=== PATIENT | male | born 1960 | race African-American/Black ===

== ENCOUNTER 2020-11-24 17:17 | Inpatient (IN) | payer OTHER ==
[~2020-11-24] VITALS: Ht 170.1 cm; Wt 69.4 kg
[2020-11-25] MEDS ORDERED: BASAG SOL SC (09:06)
[2020-11-25] MEDS ORDERED: EFFEXOR-XR150 MG PO (09:07)
[2020-11-25] MEDS ORDERED: FIBERCON625 MG PO (09:08)
[2020-11-25] MEDS ORDERED: NATURE'S BLEND F1 MG PO (09:09)
[2020-11-25] MEDS ORDERED: LIPITOR40 MG PO (09:10)
[2020-11-25] MEDS ORDERED: LOPERAMIDE HCL2 M1 PO (09:11)
[2020-11-25] MEDS ORDERED: REMERON15 M2 PO (09:11)
[2020-11-25] MEDS ORDERED: TRAD5TAB1 PO (09:12)
[2020-11-25] MEDS ORDERED: B-121000 MCG PO (09:13)
[2020-11-25] MEDS ORDERED: VITAMIN D325 MC1 PO (09:16)
[2020-11-25] MEDS ORDERED: INSULIN AS100 UNIT/2 SQ (09:30)
[2020-11-25] MEDS ORDERED: INVEGA SUS78 MG/0.5 IM (09:32)
[2020-11-25 10:57] VITALS: BP 140/48
[2020-11-25 20:00] VITALS: BP 114/69
[2020-11-26 06:10] LABS: BASO % 0.4 % (0.0-1.0); EOS # 0.2 10*3/uL (0.0-0.4); EOS % 2.4 % (1.0-4.0); HEMATOCRIT 34.9 % (42.0-52.0); LYMPH # 2.3 10*3/uL (1.3-4.4); MEAN CELL VOLUME 92.1 fl (80.0-94.0); MEAN CORPUSCULAR HGB 28.8 pg (27.0-31.0); MEAN CORPUSCULAR HGB CONC 31.2 g/dl (33.0-37.0); MEAN PLATELET VOLUME 8.9 fl (9.6-12.3); MONO # 0.8 10*3/uL (0.1-1.0); MONO % 10.7 % (3.0-9.0); NEUT # 3.9 10*3/uL (2.3-7.9); NEUT % 54.4 % (47.0-73.0); PLATELET COUNT AUTOMATED 368 10*3/uL (130-400); RED BLOOD COUNT 3.79 10*6/uL (4.50-5.90); RED CELL DISTRI WIDTH 12.4 % (0-14.5); WHITE BLOOD COUNT 7.2 10*3/uL (4.8-10.8)
[2020-11-26 06:36] LABS: ALBUMIN 3.7 gm/dl (3.1-4.5); ALKALINE PHOSPHATASE 152 U/L (45-117); BUN 32 mg/dl (7-24); CHLORIDE 105 mmol/L (98-107); CHOLESTEROL 107 mg/dL (<200); CREATININE 1.12 mg/dL (0.70-1.30); LDL CHOLESTEROL 29 mg/dL (9-159); POTASSIUM 4.5 mmol/L (3.5-5.1); SGOT/AST 61 IU/L (3-35); SGPT/ALT 124 U/L (12-78); SODIUM 137 mmol/L (136-145); TOTAL PROTEIN 8.3 gm/dL (6.4-8.2); TRIGLYCERIDES 46 mg/dl (<150)
[2020-11-26 06:42] LABS: THYROID STIM HORMONE (HS) 0.387 uIU/ml (0.358-4.75)
[2020-11-26 06:47] LABS: VITAMIN D, 25-HYDROXY 41.3 ng/mL (30-100)
[2020-11-26 07:37] VITALS: BP 116/70
[2020-11-26 20:00] VITALS: BP 136/76
[2020-11-27 07:37] VITALS: BP 129/66
[2020-11-27 18:36] LABS: BILIRUBIN Negative (Negative); BLOOD Negative (Negative); CLARITY Clear (Clear); COLOR Yellow (Yellow); GLUCOSE Negative (Negative); KETONE Trace (Negative); LEUKO ESTERASE Negative (Negative); NITRITE Negative (Negative); SPECIFIC GRAVITY 1.025 (1.001-1.030); UROBILINOGEN 0.2 E.U./dl (0.0-1.0)
[2020-11-27 18:44] LABS: BACTERIA TRACE; WBC 0-2 wbc/hpf (0-5)
[2020-11-27 20:00] VITALS: BP 142/86
[2020-11-28 07:52] VITALS: BP 145/79
[2020-11-28 20:00] VITALS: BP 133/86
[2020-11-29 07:27] VITALS: BP 111/62
[2020-11-29 20:00] VITALS: BP 106/80
[2020-11-30 07:34] VITALS: BP 116/71
[2020-11-30 20:00] VITALS: BP 119/74
[2020-12-01 07:32] VITALS: BP 126/73
[2020-12-01 20:00] VITALS: BP 116/66
[2020-12-02 07:38] VITALS: BP 119/75
[2020-12-02 20:00] VITALS: BP 145/88
[2020-12-03 07:30] VITALS: BP 110/87
[2020-12-03 20:00] VITALS: BP 124/83
[2020-12-04 07:27] VITALS: BP 121/78
[2020-12-04 20:00] VITALS: BP 125/84
[2020-12-05 07:29] VITALS: BP 107/62
[2020-12-05] MEDS ORDERED: MEMANTINE HCL10 MG PO (09:15)
[2020-12-05] MEDS ORDERED: CITALOPRAM20 MG PO (09:15)
[2020-12-05] MEDS ORDERED: INVEGA SUSTENN156 MG IM (09:15)
[2020-12-05] MEDS ORDERED: MEDROXYPROGESTE10 M1 PO (09:15)
[2020-12-05] MEDS ORDERED: RIVASTIGMINE1 EAC2 T (09:15)
[2020-12-05] MEDS ORDERED: TRIHEXYPHENIDYL2 M3 PO (09:15)
== END 2020-12-05 16:34 | DRG 886 ==
LOC: 3N 17:17
PROVIDERS: ADMIT Psychiatry & Neurology Psychiatry; ATTEND Psychiatry & Neurology Psychiatry
PROC: 0HBRXZZ Excision of Toe Nail, External Approach (ICD-10-PCS; principal; 2020-11-30)
PROC: 0HBRXZZ Excision of Toe Nail, External Approach (ICD-10-PCS; 2020-11-30)
PROC: 0HBRXZZ Excision of Toe Nail, External Approach (ICD-10-PCS; 2020-11-30)
PROC: 0HBRXZZ Excision of Toe Nail, External Approach (ICD-10-PCS; 2020-11-30)
PROC: 0HBRXZZ Excision of Toe Nail, External Approach (ICD-10-PCS; 2020-11-30)
PROC: 0HBRXZZ Excision of Toe Nail, External Approach (ICD-10-PCS; 2020-11-30)
PROC: 0HBRXZZ Excision of Toe Nail, External Approach (ICD-10-PCS; 2020-11-30)
PROC: 0HBRXZZ Excision of Toe Nail, External Approach (ICD-10-PCS; 2020-11-30)
PROC: 0HBRXZZ Excision of Toe Nail, External Approach (ICD-10-PCS; 2020-11-30)
PROC: 0HBRXZZ Excision of Toe Nail, External Approach (ICD-10-PCS; 2020-11-30)
DX: F63.9 Impulse disorder, unspecified (principal); F01.51 Vascular dementia, unspecified severity, with behavioral disturbance; R45.851 Suicidal ideations; F33.3 Major depressive disorder, recurrent, severe with psychotic symptoms; F29 Unspecified psychosis not due to a substance or known physiological condition; F14.11 Cocaine abuse, in remission; D64.9 Anemia, unspecified; R74.01 Elevation of levels of liver transaminase levels; K52.839 Microscopic colitis, unspecified; E11.9 Type 2 diabetes mellitus without complications; L84 Corns and callosities; I10 Essential (primary) hypertension; E78.5 Hyperlipidemia, unspecified; Z88.8 Allergy status to other drugs, medicaments and biological substances; Z79.899 Other long term (current) drug therapy; Z20.822 Contact with and (suspected) exposure to COVID-19